=== PATIENT | female | born 1995 | race Hispanic/Latino ===

== ENCOUNTER → 2023-10-12 08:55 | Outpatient (CLI) | payer OTHER, MEDICAID, SELFPAY ==
--- NOTE | 2023-10-12 08:57 | DI.MG.S_ITS ---
BILATERAL DIGITAL DIAGNOSTIC MAMMOGRAM 3D/2D: 10/12/2023 CLINICAL: Right breast lump. Baseline exam. No prior exams were available for comparison. Both breasts are extremely dense, which lowers the sensitivity of mammography (category d />75% glandular tissue). There is a 1.3 cm oval equal density asymmetry with a circumscribed margin in the right breast anterior depth medial region seen on the craniocaudal view only. This is not seen in additional views and does not persist with spot compression. This correlates as palpated. No other significant masses, calcifications, or other findings are seen in either breast. Left breast mammogram is normal. IMPRESSION: INCOMPLETE: NEEDS ADDITIONAL IMAGING EVALUATION The questionable 1.3 cm oval equal density asymmetry in the right breast corresponds to the palpable abnormality, but does not persist on additional views and is indeterminate. An ultrasound is recommended. This was performed immediately following this exam. No other findings in the right breast mammogram. Left mammogram is normal. Based on the Tyrer Cuzick model (a risk assessment model) the patient's lifetime risk is 8.6% and her 10 year risk is 0.3%. According to the ACR, ACS, and NCCN guidelines, an annual breast MRI exam along with mammogram is recommended if the patient's lifetime risk is 20% or greater. This exam was interpreted at Station ID: [id number]. NOTE: For mammograms, a report in lay terms will be sent to the patient. Approximately 15% of breast malignancies will not be visualized mammographically. In the management of a palpable breast mass, a negative mammogram must not discourage biopsy of a clinically suspicious lesion. Electronically Signed By: Jamilah hope/:10/12/2023 13:02:11 ACR BI-RADS Category 0: Incomplete 3340F
--- NOTE | 2023-10-12 08:57 | DI.US.S_ITS ---
LIMITED ULTRASOUND OF RIGHT BREAST AND AXILLA: 10/12/2023 CLINICAL: Palpable right breast lump. Comparison is made to exam dated: 10/12/2023 mammogram - [facility]. Color flow and real-time ultrasound of the right breast 1 o'clock, and axilla regions were performed. Hernandez scale images of the real-time examination were reviewed. There is an irregular, ill-defined, unencapsulated area of fibrocystic tissue with an indistinct margin in the right breast at 1 o'clock middle depth. NO significant internal vascular flow. This irregular area of fibrocystic tissue is hypoechoic. This correlates as palpated. No correlate such as dilated duct or retroareolar mass to explain nipple discharge. IMPRESSION: PROBABLY BENIGN The irregular area of fibrocystic tissue in the right breast corresponds to the palpable abnormality, most likely is fibrocystic change and is probably benign. A follow-up right mammogram and an ultrasound in 6 months is recommended to demonstrate stability. No sonographic explanation for nipple discharge. Clinical follow up is recommended for symptoms as needed. Findings and recommendations were conveyed to the patient at time of exam. This exam was interpreted at Station ID: [id number]. Electronically Signed By: Jamilah hope/:10/15/2023 08:44:00 letter sent: Followup Recommended Ultrasound BI-RADS: 3 Probably benign
== END ==
PROVIDERS: PCP Physician Assistant; Referring Provider Physician Assistant; Visit Provider Physician Assistant
DX: N63.10 Unspecified lump in the right breast, unspecified quadrant (principal); R92.8 Other abnormal and inconclusive findings on diagnostic imaging of breast
CPT/HCPCS: 76642; 77066; G0279

== ENCOUNTER → 2025-04-07 13:45 | Outpatient (CLI) | payer SELFPAY ==
[2025-04-07 18:54] LABS: Add Manual Diff / Slide Review NO; Hematocrit 36.0 % (36-46); Hemoglobin 12.0 g/dL (12.0-16.0); Lymphocytes Absolute Auto 2400 /uL (1100-4500); Mean Corpuscular HGB Conc 33.3 % (30-36); Mean Corpuscular Hemoglobin 27.0 PG (26-34); Mean Corpuscular Volume 81.0 fL (80-100); Platelet Count 316 X10^3/uL (150-400)
[2025-04-07 19:21] LABS: Alanine Aminotransferase 29 IU/L (<35); Albumin 4.5 g/dL (3.5-5.0); Albumin Globulin Ratio 1.4 (1.0-2.8); Alkaline Phosphatase 86 U/L (38-126); Blood Urea Nitrogen 10 mg/dL (7-17); Calcium 9.2 mg/dL (8.4-10.2); Carbon Dioxide 22 mmol/L (22-32); Chloride 104 mmol/L (98-107); Estimated Glomerular Filt Rate > 60 mL/min (>60); Globulin 3.3 g/dL (1.7-4.1); Glucose 83 mg/dL (70-99); HEMOLYSIS < 15 (0-50); Potassium 3.7 mmol/L (3.4-5.1); Sodium 137 mmol/L (137-145); Total Protein 7.8 g/dL (6.3-8.2)
[2025-04-07 19:48] LABS: TSH w/ Reflex to FT4 2.48 uIU/mL (0.47-4.68)
== END ==
PROVIDERS: PCP Physician Assistant; Visit Provider Physician Assistant
DX: R53.83 Other fatigue (principal)
CPT/HCPCS: 80053; 84443; 85025